=== PATIENT | female | born 1955 | race Caucasian/White ===

== ENCOUNTER → 2021-03-20 | Outpatient (CLI) | payer OTHER | LOC: CT 15:06 | DX: M25.50 Pain in unspecified joint (principal); S09.90XA Unspecified injury of head, initial encounter; W19.XXXA Unspecified fall, initial encounter; M16.11 Unilateral primary osteoarthritis, right hip; G31.9 Degenerative disease of nervous system, unspecified | CPT/HCPCS: 70450; 73080; 73090; 73502; 73522 ==

== ENCOUNTER → 2021-05-01 | Outpatient (CLI) | payer OTHER | LOC: KOH-I 15:30 | DX: J01.81 Other acute recurrent sinusitis (principal); J33.8 Other polyp of sinus; J34.1 Cyst and mucocele of nose and nasal sinus; J34.2 Deviated nasal septum; J32.2 Chronic ethmoidal sinusitis | CPT/HCPCS: 70486 ==

== ENCOUNTER → 2021-06-16 | Outpatient (CLI) | payer OTHER | LOC: KOH-I 09:51 | DX: M25.562 Pain in left knee (principal); M25.561 Pain in right knee; M17.0 Bilateral primary osteoarthritis of knee | CPT/HCPCS: 73562 ==

== ENCOUNTER → 2021-07-19 | Outpatient (CLI) | payer OTHER | LOC: EXRD 04-20 09:00 | DX: K74.60 Unspecified cirrhosis of liver (principal); K75.81 Nonalcoholic steatohepatitis (NASH); K30 Functional dyspepsia; E74.31 Sucrase-isomaltase deficiency; R49.0 Dysphonia | CPT/HCPCS: 76705 ==

== ENCOUNTER → 2022-03-19 | Outpatient (CLI) | payer OTHER | LOC: KOH-I 14:28 | DX: M79.642 Pain in left hand (principal); M79.604 Pain in right leg; M79.605 Pain in left leg; S61.411A Laceration without foreign body of right hand, initial encounter | CPT/HCPCS: 73130; 73590; 93971 ==

== ENCOUNTER → 2022-07-26 | Outpatient (CLI) | payer OTHER | LOC: EMI 14:54 | DX: R41.3 Other amnesia (principal); G30.0 Alzheimer's disease with early onset; R26.81 Unsteadiness on feet; R41.89 Other symptoms and signs involving cognitive functions and awareness; J32.0 Chronic maxillary sinusitis; J32.2 Chronic ethmoidal sinusitis; J32.1 Chronic frontal sinusitis | CPT/HCPCS: 70551 ==